=== PATIENT | female | born 1975 | race Caucasian/White ===

== ENCOUNTER 2021-02-11 16:40 | Emergency (ER) | payer SELFPAY ==
[2021-02-11 17:29] VITALS: BP 110/74; PULSE 96; RESP 18; TEMP 36.6; O2SAT 100; BMI 31.8
--- NOTE | 2021-02-11 18:13 | ED_ITS ---
HPI - General Adult General Chief complaint: General Medical Stated complaint: med refill Time Seen by Provider: 02/11/21 18:10 Source: patient Mode of arrival: ambulatory Limitations: no limitations History of Present Illness HPI narrative: 45 y/o female with history of anxiety on chronic benzodiazepines x1 year, last filled on 12/16/20 who presents to the ER requesting a refill for her clonazepam medication. She tried getting it refilled on 01/16 however she reports her physician no longer works there. Related Data Allergies Allergy/AdvReac Type Severity Reaction Status Date / Time No Known Allergies Allergy Verified 02/11/21 17:28 [facility] Social History Social History Patient : No Physical Exam Vital Signs: Vital Signs: Last Vital Signs Temp 97.8 F 02/11/21 17:29 Pulse 96 02/11/21 17:29 Resp 18 02/11/21 17:29 BP 110/74 02/11/21 17:29 Pulse Ox 100 02/11/21 17:29 Body Mass Index 31.8
--- NOTE | 2021-02-11 20:41 | ED_ITS ---
HPI - General Adult General Chief complaint: General Medical Stated complaint: med refill Time Seen by Provider: 02/11/21 18:10 Source: patient Mode of arrival: ambulatory Limitations: no limitations History of Present Illness HPI narrative: 45 y/o female with history of anxiety of Clonazepam x1 year presents to the ER with worsening anxiety after she ran out of her medication. Her doctor in [place], [place] who has been prescribing it since December 2019 is no longer practicing and she has not been able to find a new doctor to prescribe it for her. She reports being on 2 wait lists. She called another doctor's office today who told her to come to the ER for a new prescription. She last filled the medication on 12/16. When she went to get a refill on 01/16 there was no med. She has been off of it for almost 1 month. She denies SI but reports depression and anxiety are worsening. MD complaint: med refill, anxiety Onset (ago): week(s) Severity: moderate Pain Consistency: intermittent Relieving factors: none Exacerbating factors: none Associated symptoms: headaches and loss of appetite Treatments prior to arrival: none Related Data Previous Rx's Medication Instructions Recorded hydroxyzine HCl 50 mg PO TID PRN #30 tab 02/11/21 Allergies Allergy/AdvReac Type Severity Reaction Status Date / Time No Known Allergies Allergy Verified 02/11/21 17:28 Review of Systems Review of Systems: Constitutional: No Fever, No Chills Eyes: No Eye Pain, No Swelling, No Redness Cardiovascular: No Chest Pain, No SOB, Respiratory: No Cough, No Sputum Gastrointestinal: No Nausea, No Vomiting, No Diarrhea, No abdominal Pain Musculoskeletal: No joint pain, No Myalgias Skin: No Skin Lesions, No rash Neuro: No Weakness, No Numbness, No Dizziness, + Headache Psych: + Anxiety/Panic, + Depression PMFSH Past Medical History Attestation statement: The following information was validated with the patient. Social History Social History Advance Directives: No Advance Directives Information Provided: No Patient : No Physical Exam Vital Signs: Vital Signs: Last Vital Signs Temp 98.3 F 02/11/21 22:12 Pulse 74 02/11/21 22:12 Resp 16 02/11/21 22:12 BP 121/74 02/11/21 22:12 Pulse Ox 96 02/11/21 22:12 Body Mass Index 31.8 Appearance: Alert. Oriented X3. No acute distress. Eyes: Pupils equal, round and reactive to light. ENT: Pharynx normal. Neck: Normal inspection. Neck supple. CVS: Normal heart rate and rhythm. Pulses normal. Respiratory: No respiratory distress. Breath sounds normal. Abdomen: Soft and nontender. +BS x4 Skin: Skin warm and dry. Normal skin color. Normal skin turgor. No rashes. Extremities: No lower extremity edema. Neuro: Oriented X 3. No motor deficit. No sensory deficit. Ambulates with s teady gait. Course Course Course Narrative: 45 y/o female with history of anxiety presenting for nd dication refill of her Klonopin which she has been off of for 1 month. Patient counseled and given therapist and psychiatrist list from [facility] team. She is not exhibiting symptoms of benzo withdrawal. She is understanding that this medication cannot be restarted in the ER setting. Will give PRN hydroxazine for now which she is agreeable with. Not suicidal and she is appropriate. Stable for d/c home with outpatient follow up. Critical Care Time Critical Care Time Critical Care Time: No Discharge Plan Discharge Clinical Impression: Anxiety Patient Disposition: Home, Self-Care Instructions: Anxiety (ED) Additional Instructions: Take the prescribed medication as needed for anxiety. Recommend following up with a Psychiatrist and Therapist [facility]. See list provided. Prescriptions: New hydroxyzine HCl 50 mg tablet 50 mg PO TID PRN (Reason: anxiety) Qty: 30 RF: 0 Interventions: LWBS Worksheet Last Done: 02/11/21 18:18 ED Discharge Assessment Last Done: 02/11/21 22:10 Discharge Date/Time: 02/11/21 22:16
[2021-02-11 20:58] VITALS: BP 122/81; PULSE 85; RESP 18; TEMP 36.7; O2SAT 98
[2021-02-11 22:12] VITALS: BP 121/74; PULSE 74; RESP 16; TEMP 36.8; O2SAT 96
== END 2021-02-11 22:16 | disposition home or self-care (01) ==
PROVIDERS: Emergency Provider Internal Medicine; PCP Internal Medicine
DX: F41.9 Anxiety disorder, unspecified (principal)
CPT/HCPCS: 99283